=== PATIENT | female | born 1935 | race Caucasian/White ===

== ENCOUNTER → 2016-11-04 07:52 | Outpatient (CLI) | payer MEDICARE, BC ==
[2012-04-08 06:23] VITALS: BMI 24.8
== END | disposition home or self-care (01) ==
LOC: D.CT 09-23 09:30
DX: I71.4 Abdominal aortic aneurysm, without rupture (principal)

== ENCOUNTER → 2017-07-15 15:58 | Outpatient (CLI) | payer MEDICARE, BC ==
[2012-04-08 06:23] VITALS: BMI 24.8
== END | disposition home or self-care (01) ==
LOC: D.MAMMO 10:00
DX: N60.01 Solitary cyst of right breast (principal)

== ENCOUNTER → 2017-07-28 07:35 | Outpatient (CLI) | payer MEDICARE, BC ==
[2012-04-08 06:23] VITALS: BMI 24.8
== END | disposition home or self-care (01) ==
LOC: D.US 07-24 09:00
DX: N60.01 Solitary cyst of right breast (principal)

== ENCOUNTER 2017-08-08 05:27 | Day surgery (SDC) | payer MEDICARE, BC ==
[~2017-08-08] VITALS: Ht 160 cm; Wt 63.6 kg
--- NOTE | ~2017-08-08 | OP ---
PATIENT NAME: HEIDY SANFORD MEDICAL RECORD: [id number] :37 LOCATION:[facility] ADMISSION DATE: SURGEON: FEI ALBARRAN MD DATE OF OPERATION: 08/08/2017 PREOPERATIVE DIAGNOSES: 1. Right breast cancer. 2. Hypercholesterolemia. 3. Hypertension. POSTOPERATIVE DIAGNOSES: 1. Right breast cancer. 2. Hypercholesterolemia. 3. Hypertension. PROCEDURE: Right simple mastectomy with right sentinel lymph node biopsy. SURGEON: Fei Albarran MD REPORT OF PROCEDURE: The patient's right chest and axilla were prepped and draped in sterile fashion. An ovoid incision was made around the patient's nipple areolar complex in a transverse fashion. Electrocautery was used to dissect through subcutaneous tissue and the breast tissue was removed off the patient's pectoral muscle. We were able to extend our dissection up to the clavicle and to the medial sternum. We proceeded down past the pectoral muscle on to the superior aspect of the abdominal muscles and out laterally into the axilla. The specimen was marked appropriately and sent off for permanent specimen. We then inspected for any bleeding and irrigated the wound out with sterile water. We then performed a sentinel lymph node biopsy. Preoperatively, the patient had undergone lymphoscintigraphy. We were able to find a node that had a reading of 225. This node was excised and sent off for permanent specimen. We inspected the remainder of the area and there was another piece of tissue that had high reading, I feel like this was actually a part of the original sentinel lymph node. This piece of tissue was removed and at that point, we could not find any further readings of an elevated nuclear tracer. The wound was irrigated out one last time. We inspected again for any bleeding and there was none. A 10 flat AMELIA drain was inserted through the right axilla and laid in the patient's chest pocket. The subcutaneous tissues were reapproximated with interrupted 3-0 Vicryl and the skin was closed with bertha. A pressure dressing was then applied. COMPLICATIONS: None. CONDITION: Stable. ANESTHESIA: General endotracheal. BLOOD LOSS: 50 mL. TRANSINT:[id number] Voice Confirmation ID: [id number] DOCUMENT ID: [id number] OPERATIVE REPORT [id number] HEIDY SANFORD FEI ALBARRAN MD at 1413 CC: CHRISTOPHER OSCAR [id number] DICTATION DATE: 08/08/17 1507 [place]: 08/08/17 1600 [facility] [place] 08/09/17 [facility] [address] [place] [address]
[~2017-08-08 05:27] MED LIST: AVAPRO300 MG PO; BAYER CHEWABLE81 MG PO; CRESTOR5 MG PO; METOPROLOL TAR100 M1 PO
[2017-08-08 06:05] LABS: BASOPHILS 0.4 % (0-2); HEMATOCRIT 42.1 % (36.0-48.0); IMMATURE GRANULOCYTES 0.1 % (0-5); LYMPHOCYTES 28.6 % (15-50); MCH 31.2 pg (26.0-34.0); MCHC 33.3 g/dL (31.0-37.0); MCV 93.8 fL (80.0-100.0); MEAN PLATELET VOLUME 10.6 fL (7.4-10.4); MONOCYTES 15.5 % (2-11); NEUTROPHILS 51.4 % (40-80); PLATELET COUNT 222 10x3/uL (130-400); RBC 4.49 10x6/uL (4.00-5.40); RDW 12.8 % (11.5-14.5)
[2017-08-08 06:18] LABS: CALC OSMOLALITY 284 mosm/kg (275-300); CALCIUM 8.9 mg/dL (8.5-10.1); CARBON DIOXIDE 28.6 mmol/L (21.0-32.0); CHLORIDE - SERUM 105 mmol/L (98-107); CREATININE - SERUM 0.6 mg/dL (0.6-1.3); GLUCOSE 106 mg/dL (74-106); POTASSIUM - SERUM 4.1 mmol/L (3.5-5.1); SODIUM 141 mmol/L (136-145); UREA NITROGEN 24 mg/dL (7-18); eGFR NON AFRICAN AMERICAN > 90 mL/min (90-120)
[2017-08-08 10:46] VITALS: BP 179/85; BMI 24.8
[2017-08-08] MEDS ORDERED: NORCO 7.5/325 T1 TA1 PO (15:03)
[2017-08-08 20:00] VITALS: BP 101/50
[2017-08-08 23:11] VITALS: BP 132/64; Ht 160 cm; Wt 63.6 kg
[2017-08-09 04:00] VITALS: BP 95/61
[2017-08-09 08:15] VITALS: BP 104/52
[2017-08-09 13:04] VITALS: BP 110/54
== END 2017-08-09 14:46 | disposition home or self-care (01) ==
LOC: D.MS 05:27 → D.OPS 05:27 → D.NM 07:30 → D.PAN 07:30 → D.OPS 07:30 → D.MS 16:35 → D.OPS 08-09 14:46
PROVIDERS: Anesthesiology
DX: C50.911 Malignant neoplasm of unspecified site of right female breast (principal); I10 Essential (primary) hypertension; E78.00 Pure hypercholesterolemia, unspecified; Z01.812 Encounter for preprocedural laboratory examination

== ENCOUNTER → 2017-12-05 08:13 | Outpatient (CLI) | payer MEDICARE, BC ==
[2017-08-08 23:11] VITALS: BMI 24.8
[~2017-12-05 08:13] MED LIST changes: +NORCO 7.5/325 T1 TA1 PO
== END | disposition home or self-care (01) ==
LOC: D.US 08:13
DX: I71.4 Abdominal aortic aneurysm, without rupture (principal)

== ENCOUNTER → 2018-07-21 18:05 | Outpatient (CLI) | payer MEDICARE, BC ==
[2017-08-08 23:11] VITALS: BMI 24.8
== END | disposition home or self-care (01) ==
LOC: D.MAMMO 09:00
DX: Z85.3 Personal history of malignant neoplasm of breast (principal)

== ENCOUNTER → 2019-04-30 08:43 | Outpatient (CLI) | payer MEDICARE, BC ==
[2017-08-08 23:11] VITALS: BMI 24.8
== END | disposition home or self-care (01) ==
LOC: D.US 08:43
PROVIDERS: ATTEND Internal Medicine Cardiovascular Disease
DX: I71.4 Abdominal aortic aneurysm, without rupture (principal)

== ENCOUNTER 2019-10-21 09:00 | Outpatient (CLI) | payer MEDICARE, BC ==
[2017-08-08 23:11] VITALS: BMI 24.8
== END 2019-10-21 10:00 | disposition home or self-care (01) ==
LOC: D.MAMMO 09:00
PROVIDERS: ATTEND Surgery
DX: Z85.3 Personal history of malignant neoplasm of breast (principal)

== ENCOUNTER → 2019-11-01 09:35 | Outpatient (CLI) | payer MEDICARE, BC ==
[2017-08-08 23:11] VITALS: BMI 24.8
== END | disposition home or self-care (01) ==
LOC: D.CT 09:35
PROVIDERS: ATTEND Internal Medicine Cardiovascular Disease
DX: I71.4 Abdominal aortic aneurysm, without rupture (principal)

== ENCOUNTER 2020-10-18 11:16 | Emergency (ER) | payer MEDICARE, BC ==
[~2020-10-18] VITALS: Ht 160 cm; Wt 60.0 kg
[2020-10-18 11:22] VITALS: Ht 160 cm; Wt 60.0 kg
[2020-10-18] MEDS ORDERED: ASPIRIN325 MG PO (11:26)
[2020-10-18] MEDS ORDERED: CRESTOR10 MG PO (11:26)
[2020-10-18 12:05] LABS: BASOPHILS 0.3 % (0-2); EOSINOPHILS 0 % (0-7); HEMOGLOBIN 13.1 g/dL (12-16); LYMPHOCYTES 7.3 % (15-50); MCH 30.4 pg (26.0-34.0); MCHC 33.6 g/dL (31.0-37.0); MCV 90.4 fL (80.0-100.0); MEAN PLATELET VOLUME 8.5 fL (7.4-10.4); MONOCYTES 5.2 % (2-11); NEUTROPHILS 87.2 % (40-80); PLATELET COUNT 249 10x3/uL (130-400); RBC 4.32 10x6/uL (4.00-5.40); RDW 12.9 % (11.5-14.5); WBC 10.7 10x3/uL (4.8-10.8)
[2020-10-18 12:12] LABS: CALC OSMOLALITY 285 mosm/kg (275-300); CALCIUM 9.2 mg/dL (8.5-10.1); CARBON DIOXIDE 31.2 mmol/L (21.0-32.0); CHLORIDE - SERUM 101 mmol/L (98-107); CREATININE - SERUM 0.7 mg/dL (0.6-1.3); GLUCOSE 147 mg/dL (74-106); POTASSIUM - SERUM 3.4 mmol/L (3.5-5.1); SODIUM 141 mmol/L (136-145); UREA NITROGEN 19 mg/dL (7-18); eGFR NON AFRICAN AMERICAN 84 mL/min (90-120)
[2020-10-18 12:21] LABS: ALBUMIN 3.8 g/dL (3.4-5.0); ALKALINE PHOSPHATASE 45 U/L (30-120); ALT (SGPT) 28 U/L (10-68); AMYLASE - SERUM 47 U/L (25-115); BILIRUBIN - TOTAL 0.69 mg/dL (0.2-1.3); LIPASE 66 U/L (73-393); PROTEIN - SERUM 7.1 g/dL (6.4-8.2); TROPONIN-I < 0.017 ng/mL (0.000-0.060)
[2020-10-18 14:45] LABS: NITRITE NEGATIVE (NEGATIVE)
[2020-10-18 14:46] LABS: BACTERIA FEW HPF (NONE SEEN); BILIRUBIN NEGATIVE (NEGATIVE); KETONE SMALL mg/dL (NEGATIVE); SQUAMOUS EPITHELIAL OCC HPF (0-4); UROBILINOGEN NORMAL mg/dL (< 2); WHITE CELLS - URINE RARE HPF (0-4)
[2020-10-18 16:44] VITALS: BP 144/53
== END 2020-10-18 16:10 | disposition other institution (70) ==
LOC: D.ER 11:16
PROVIDERS: Family Medicine
DX: R10.9 Unspecified abdominal pain (principal); R11.2 Nausea with vomiting, unspecified; N20.1 Calculus of ureter; I10 Essential (primary) hypertension; G35 Multiple sclerosis

== ENCOUNTER 2020-11-01 10:00 | Outpatient (CLI) | payer MEDICARE, BC ==
[2020-10-18 11:22] VITALS: BMI 23.4
[~2020-11-01 10:00] MED LIST changes: +ASPIRIN325 MG PO; +CRESTOR10 MG PO
== END 2020-11-01 10:30 | disposition home or self-care (01) ==
LOC: D.MAMMO 10:00
PROVIDERS: ATTEND Internal Medicine Hematology & Oncology
DX: C50.111 Malignant neoplasm of central portion of right female breast (principal); Z17.0 Estrogen receptor positive status [ER+]; D51.9 Vitamin B12 deficiency anemia, unspecified

== ENCOUNTER → 2020-11-02 07:32 | Outpatient (CLI) | payer MEDICARE, BC ==
[2020-10-18 11:22] VITALS: BMI 23.4
== END | disposition home or self-care (01) ==
LOC: D.CT 07:32
PROVIDERS: ATTEND Internal Medicine Cardiovascular Disease
DX: I71.4 Abdominal aortic aneurysm, without rupture (principal)